=== PATIENT | male | born 1990 ===

== ENCOUNTER 2018-09-23 01:22 | Emergency (ER) | payer SELFPAY ==
[2018-09-23 01:23] VITALS: BMI 25.0
[2018-09-23] MEDS ORDERED: Tdap Vaccine 0.5 ml Vial (10-64 yrs) IM ONE (02:26)
[2018-09-23] MEDS ORDERED: Tetanus/Diphtheria Toxoids 0.5 ml Syringe IM ONE (02:35)
[2018-09-23] MEDS ORDERED: Lidocaine 1% Inj (20ml) INFIL ONE (03:21)
[2018-09-23] MEDS ORDERED: Lidocaine Hydrochloride 5 ML INJ ONE (03:48)
[2018-09-23] MEDS ORDERED: Lidocaine Hydrochloride 10 ML INJ ONE (03:49)
--- NOTE | 2018-09-23 04:49 | C.PDOC ---
History Of Present Illness Patient is a 28 year old male who presents to the ED for a laceration to the left side of his face. Patient states that he was at a [employer] with people drinking when he fell over and smashed into a glass table. Patient denies LOC, visual changes, weakness, numbness, SOB, CP, nausea, or vomiting. Tetanus shot up to date. Time Seen by Provider: 09/23/18 01:45 Chief Complaint (Nursing): Abnormal Skin Integrity History Per: Patient History/Exam Limitations: no limitations Onset/Duration Of Symptoms: Hrs Current Symptoms Are (Timing): Still Present Location Of Injury: Left: Face Quality Of Symptoms: Painful Recent travel outside of the [place]: No Additional History Per: Patient Past Medical History Reviewed: Historical Data, Nursing Documentation, Vital Signs Vital Signs: Last Vital Signs Temp 98.6 F 09/23/18 01:24 Pulse 109 H 09/23/18 01:24 Resp 20 09/23/18 01:24 BP 151/99 H 09/23/18 01:24 Pulse Ox 100 09/23/18 01:24 - Medical History PMH: Sexually Transmitted Disease (pt reported he was given an STD and he is currently treating it.) Denies: Diabetes, Hepatitis, HIV, HTN, Seizures Surgical History: No Surg Hx Family History: States: Unknown Family Hx - Social History Hx Tobacco Use: Yes Hx Alcohol Use: Yes Hx Substance Use: No - Immunization History Hx Tetanus Toxoid Vaccination: No Hx Influenza Vaccination: No Hx Pneumococcal Vaccination: No Review Of Systems Constitutional: Negative for: Fever, Chills Eyes: Negative for: Vision Change Cardiovascular: Negative for: Chest Pain Respiratory: Negative for: Shortness of Breath Gastrointestinal: Negative for: Nausea, Vomiting Skin: Positive for: Other (laceration) Neurological: Negative for: Weakness, Numbness, Headache, Dizziness Physical Exam - Physical Exam Appears: Non-toxic, No Acute Distress Skin: Normal Color, Warm, Dry Head: Normacephalic, Laceration (7 cm vertical laceration to left side of face anterior to ear, sensation intact, facial movements intact. ), Other (no active bleeding, sensation intact, able to smile) Eye(s): bilateral: Normal Inspection, PERRL, EOMI Oral Mucosa: Moist Neck: Normal ROM, Supple Chest: Symmetrical, No Deformity Cardiovascular: Rhythm Regular Respiratory: Normal Breath Sounds, No Rales, No Rhonchi, No Wheezing Extremity: Normal ROM, No Tenderness, No Swelling Neurological/Psych: Oriented x3, Normal Speech, Normal Cognition Gait: Steady ED Course And Treatment O2 Sat by Pulse Oximetry: 100 (ON RA) Pulse Ox Interpretation: Normal Laceration - Laceration Repair 6 cm Wound Length (In cm): 6 Description Of Wound: Linear Wound Cleansed With: Sterile Saline Anesthesia: Lidocaine 1% Wound Examination: Irrigated With Saline, No FB With Wound Exploration Wound Closure: Suture (5-0) Suture Technique And Material Used: Running, Interrupted (#11) Wound Complexity: Intermediate Disposition Counseled Patient/Family Regarding: Diagnosis, Need For Followup, Rx Given - Disposition Disposition: HOME/ ROUTINE Disposition Time: 04:58 Condition: IMPROVED Additional Instructions: Keep wound clean and dry. Wash gently daily and pat dry, apply bacitracin 1-2 times per day. Suture removal in 5-7 days. Tylneol or Motrin for pain if needed. Return to ER for any isgns of infection such as rednss, swelling. purulent discharge. 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 - Scribe Statement The provider has reviewed the documentation as recorded by the Gely Miller All medical record entries made by the Scribe were at my direction and personally dictated by me. I have reviewed the chart and agree that the record accurately reflects my personal performance of the history, physical exam, medical decision making, and the department course for this patient. I have also personally directed, reviewed, and agree with the discharge instructions and disposition.
--- NOTE | 2018-09-23 04:54 | C.PDOC ---
History Of Present Illness Patient is a 28 year old male who presents to the ED for a 6/7 cm laceration to the left side of his face. Patient states that he was with a [employer] party of people drinking when he fell over and smashed into a glass table. Patient denies weakness, numbness, SOB, CP, nausea, or vomiting. Tetanus shot up to date. Time Seen by Provider: 09/23/18 01:45 Chief Complaint (Nursing): Abnormal Skin Integrity History Per: Patient History/Exam Limitations: no limitations Onset/Duration Of Symptoms: Hrs Current Symptoms Are (Timing): Still Present Location Of Injury: Right: Head (laceration to the left side of face ) Quality Of Symptoms: Painful Additional History Per: Patient Past Medical History Reviewed: Historical Data, Nursing Documentation, Vital Signs Vital Signs: Last Vital Signs Temp 98.6 F 09/23/18 01:24 Pulse 109 H 09/23/18 01:24 Resp 20 09/23/18 01:24 BP 151/99 H 09/23/18 01:24 Pulse Ox 100 09/23/18 01:24 - Medical History PMH: Sexually Transmitted Disease (pt reported he was given an STD and he is currently treating it.) Denies: Diabetes, Hepatitis, HIV, HTN, Seizures Surgical History: No Surg Hx Family History: States: Unknown Family Hx - Social History Hx Tobacco Use: Yes Hx Alcohol Use: Yes Hx Substance Use: No - Immunization History Hx Tetanus Toxoid Vaccination: No Hx Influenza Vaccination: No Hx Pneumococcal Vaccination: No Review Of Systems Constitutional: Positive for: Fever. Negative for: Weakness Cardiovascular: Negative for: Chest Pain Respiratory: Negative for: Shortness of Breath Gastrointestinal: Negative for: Nausea, Vomiting Neurological: Negative for: Numbness Physical Exam - Physical Exam Appears: Non-toxic, No Acute Distress Skin: Normal Color, Warm, Dry Head: Normacephalic, Laceration (6/7 cm laceration to left side of face ), Other (no active bleeding, sensation intact, able to smile ) Eye(s): bilateral: Normal Inspection Oral Mucosa: Moist Neck: Supple Chest: Symmetrical, No Deformity Cardiovascular: Rhythm Regular Respiratory: Normal Breath Sounds, No Rales, No Rhonchi, No Wheezing Extremity: Normal ROM Neurological/Psych: Oriented x3, Normal Speech, Normal Cognition Gait: Steady ED Course And Treatment O2 Sat by Pulse Oximetry: 100 (on RA) Pulse Ox Interpretation: Normal Disposition - Disposition Forms: [facility] ([place]in[place])
--- NOTE | 2018-09-23 05:01 | CP.PCM.PN ---
Subjective - Date & Time of Evaluation Date of Evaluation: 09/23/18 Time of Evaluation: 03:45 - Subjective Subjective: See Procedure note below. 11 interrupted suture placed. Pt tolerated the procedure well. Objective - Vital Signs/Intake and Output Vital Signs (last 24 hours): Temp Pulse Resp BP Pulse Ox 98.6 F 109 H 20 151/99 H 100 09/23/18 01:24 09/23/18 01:24 09/23/18 01:24 09/23/18 01:24 09/23/18 04:57 Laceration - Laceration Repair Wound Length (In cm): 10 Description Of Wound: Linear Wound Cleansed With: Betadine, Sterile Saline Anesthesia: Lidocaine 1% Wound Examination: Irrigated With Saline, No FB With Wound Exploration Wound Closure: Suture Suture Technique And Material Used: Interrupted (11 x 5-0 ethilon sutures) Wound Complexity: Simple Laceration - Laceration Repair Wound Complexity: Simple
[2018-09-23] MEDS ORDERED: Bacitracin 500 Units/gm Oint Foilpak UD TOP ONE (05:05)
[2018-09-23] MEDS ORDERED: Bacitracin 500 Units/gm Oint Foilpak UD ONE (05:11)
[2018-09-23 05:16] VITALS: BP 136/98; PULSE 89; RESP 16; TEMP 98.7
[2018-09-24 06:50] VITALS: O2SAT 100
== END 2018-09-23 05:15 | disposition home or self-care (01) ==
LOC: C.ER 01:22
DX: S01.81XA Laceration without foreign body of other part of head, initial encounter (principal); W19.XXXA Unspecified fall, initial encounter; Z23 Encounter for immunization; Z72.0 Tobacco use

== ENCOUNTER 2018-09-30 15:39 | Emergency (ER) | payer MEDICAID ==
[2018-09-30 15:39] VITALS: BMI 25.0
[2018-09-30 15:59] VITALS: BP 142/75; PULSE 84; RESP 16; TEMP 97.8; O2SAT 98
[2018-09-30] MEDS ORDERED: Oxycodone/Acetaminophen 5/325 mg Tab ONE (16:19)
--- NOTE | 2018-09-30 16:33 | C.PDOC ---
History Of Present Illness 28 y/o male comes in for suture removal. Patient had 11 sutures placed a week ago on his face and is requesting to be removed. Patient has no physical complaints. Chief Complaint (Nursing): Suture/Staple Removal History Per: Patient History/Exam Limitations: no limitations Onset/Duration Of Symptoms: Days Ago Current Symptoms Are (Timing): Still Present Past Medical History Reviewed: Historical Data, Nursing Documentation, Vital Signs Vital Signs: Last Vital Signs Temp 97.8 F 09/30/18 15:57 Pulse 84 09/30/18 15:57 Resp 16 09/30/18 15:57 BP 142/75 09/30/18 15:57 Pulse Ox 98 09/30/18 15:57 - Medical History PMH: Sexually Transmitted Disease (pt reported he was given an STD and he is currently treating it.) Denies: Diabetes, Hepatitis, HIV, HTN, Seizures Family History: States: No Known Family Hx - Social History Hx Tobacco Use: Yes Hx Alcohol Use: Yes Hx Substance Use: No - Immunization History Hx Tetanus Toxoid Vaccination: No Hx Influenza Vaccination: No Hx Pneumococcal Vaccination: No Review Of Systems Except As Marked, All Systems Reviewed And Found Negative. Skin: Positive for: Other (Wound on left side of face) Physical Exam - Physical Exam Appears: Non-toxic, No Acute Distress Skin: Warm, Dry Head: Laceration (healing 6in laceration to L side of face, no discharge) Eye(s): bilateral: Normal Inspection Oral Mucosa: Moist Neck: Supple Chest: Symmetrical Cardiovascular: Rhythm Regular, No Murmur Respiratory: Normal Breath Sounds, No Rales, No Rhonchi, No Wheezing Extremity: Bilateral: Atraumatic, Normal Color And Temperature, Normal ROM Neurological/Psych: Oriented x3, Normal Speech ED Course And Treatment O2 Sat by Pulse Oximetry: 98 (RA) Pulse Ox Interpretation: Normal Procedure: Blank - Procedure Procedure:: Suture removal - Performed by: Performed by:: Attending physician - Location Location: Left, Face - Result Result: Successful - Patient Tolerated Procedure Patient Tolerated Procedure:: Well Disposition Counseled Patient/Family Regarding: Diagnosis - Disposition Disposition: HOME/ ROUTINE Disposition Time: 16:32 Condition: STABLE Additional Instructions: follow up with your doctor within 2 days call to make an appointment take medications as prescribed return to ER if symptoms worsens or progress Instructions: Stitches Removal Forms: [facility] (Belarusian), General Discharge Instructions - Clinical Impression Clinical Impression: Removal of suture - Scribe Statement The provider has reviewed the documentation as recorded by the Scribe Kira Hinton Provider Attestation: All medical record entries made by the Scribe were at my direction and personally dictated by me. I have reviewed the chart and agree that the record accurately reflects my personal performance of the history, physical exam, medical decision making, and the department course for this patient. I have also personally directed, reviewed, and agree with the discharge instructions and disposition.
[2018-09-30] MEDS ORDERED: Bacitracin 500 Units/gm Oint Foilpak UD ONE (16:42)
== END 2018-09-30 16:36 | disposition home or self-care (01) ==
LOC: C.ER 15:39
DX: Z48.02 Encounter for removal of sutures (principal)

== ENCOUNTER 2019-02-15 15:07 | Emergency (ER) | payer SELFPAY ==
[2019-02-15 15:14] VITALS: BMI 25.8
[2019-02-15 15:15] VITALS: RESP 18; O2SAT 99
[2019-02-15] MEDS ORDERED: DTap Vaccine 0.5 ml Vial IM ONE (16:26)
--- NOTE | 2019-02-15 16:27 | C.PDOC ---
History Of Present Illness 28 y/o male pt presents to the ER c/o a laceration on his chin. Pt reports he was drunk and woke up with it. Pt does not recall any events happening prior. Pt is not UTD on tetanus shot. He denies any headache, dizziness, nausea, vomiting, or any associated sx or complaints at this time. Time Seen by Provider: 02/15/19 15:39 Chief Complaint (Nursing): Abnormal Skin Integrity History Per: Patient History/Exam Limitations: no limitations Onset/Duration Of Symptoms: Hrs Current Symptoms Are (Timing): Still Present Past Medical History Reviewed: Historical Data, Nursing Documentation, Vital Signs Vital Signs: Last Vital Signs Temp 98.4 F 02/15/19 15:13 Pulse 97 H 02/15/19 15:13 Resp 18 02/15/19 15:13 BP 144/94 H 02/15/19 15:13 Pulse Ox 99 02/15/19 15:13 Primary Care Provider: FAMILY PROVIDER,NO - Medical History PMH: Sexually Transmitted Disease (pt reported he was given an STD and he is currently treating it.) Family History: States: Unknown Family Hx - Social History Hx Tobacco Use: Yes Hx Alcohol Use: Yes Hx Substance Use: No - Immunization History Hx Tetanus Toxoid Vaccination: No Hx Influenza Vaccination: No Hx Pneumococcal Vaccination: No Review Of Systems Except As Marked, All Systems Reviewed And Found Negative. Gastrointestinal: Negative for: Nausea, Vomiting Skin: Positive for: Other (1 cm deep laceration on chin ) Neurological: Negative for: Headache, Dizziness Physical Exam - Physical Exam Appears: Non-toxic, No Acute Distress Skin: Warm, Dry Head: Normacephalic, Laceration (deep; 1 cm on chin ) Eye(s): bilateral: EOMI Neurological/Psych: Oriented x3, Normal Speech, Normal Cognition ED Course And Treatment O2 Sat by Pulse Oximetry: 99 (RA) Pulse Ox Interpretation: Normal Progress Note: Plans: -- CT head. -- bacitracin. -- tetanus. -- lidocaine. -- laceration repair Laceration - Laceration Repair chin Wound Length (In cm): 1 Description Of Wound: Linear, Clean Wound Cleansed With: Betadine, Sterile Saline Anesthesia: Lidocaine 1% Wound Examination: Irrigated With Saline, No FB With Wound Exploration Wound Closure: Suture (3) Suture Technique And Material Used: Interrupted, Prolene (5-O) Wound Complexity: Simple Disposition - Disposition Disposition: HOME/ ROUTINE Disposition Time: 18:19 Condition: STABLE Additional Instructions: Follow up with PMD within 1-2 days. Return to ED if feel worse. Suture removal in 1 week. 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 - Scribe Statement The provider has reviewed the documentation as recorded by the Gely Springer Do All medical record entries made by the Scribe were at my direction and personally dictated by me. I have reviewed the chart and agree that the record accurately reflects my personal performance of the history, physical exam, medical decision making, and the department course for this patient. I have also personally directed, reviewed, and agree with the discharge instructions and disposition.
[2019-02-15] MEDS ORDERED: Lidocaine 1% Inj (20ml) INFIL STA (16:29)
[2019-02-15] MEDS ORDERED: Bacitracin 500 Units/gm Oint Foilpak UD TOP STA (16:30)
[2019-02-15] MEDS ORDERED: Bacitracin 500 Units/gm Oint Foilpak UD ONE (16:38)
[2019-02-15] MEDS ORDERED: Lidocaine Hydrochloride 5 ML INJ ONE (16:38)
[2019-02-15] MEDS ORDERED: Tdap Vaccine 0.5 ml Vial (10-64 yrs) IM ONE (16:38)
--- NOTE | 2019-02-15 18:16 | CT ---
Date of service: 02/15/2019 PROCEDURE: CT HEAD WITHOUT CONTRAST. HISTORY: ETOH, trauma COMPARISON: None available. TECHNIQUE: Axial computed tomography images were obtained through the head/brain without intravenous contrast. Radiation dose: Total exam DLP = 1048.85 mGy-cm. This CT exam was performed using one or more of the following dose reduction techniques: Automated exposure control, adjustment of the mA and/or kV according to patient size, and/or use of iterative reconstruction technique. FINDINGS: HEMORRHAGE: No intracranial hemorrhage. BRAIN: No mass effect or edema. No atrophy or chronic microvascular ischemic changes. VENTRICLES: Unremarkable. No hydrocephalus. CALVARIUM: Unremarkable. PARANASAL SINUSES: Unremarkable as visualized. No significant inflammatory changes. MASTOID AIR CELLS: Unremarkable as visualized. No inflammatory changes. OTHER FINDINGS: None. IMPRESSION: No evidence of acute intracranial hemorrhage mass effect or midline shift.
[2019-02-15 18:47] VITALS: BP 148/87; PULSE 86; TEMP 98.6
== END 2019-02-15 18:47 | disposition home or self-care (01) ==
LOC: C.ER 15:07
DX: S01.81XA Laceration without foreign body of other part of head, initial encounter (principal); X58.XXXA Exposure to other specified factors, initial encounter